=== PATIENT | male | born 1980 | race Caucasian/White ===

== ENCOUNTER 2020-04-22 22:25 | Outpatient (REF) | payer MEDICAID, SELFPAY ==
[2020-04-22 23:26] LABS: BUN 13 mg/dL (7-18); CREATININE 1.1 mg/dL (0.70-1.30); Calcium 10.1 mg/dL (8.5-10.1); Chloride 100 mmol/L (98-107); Glucose 117 mg/dL (74-106); Potassium 4.6 mmol/L (3.5-5.1); Sodium 139 mmol/L (136-145); TSH (W/Ref FT4) 2.85 uIU/mL (0.36-3.74); Vitamin B12 637 pg/mL (193-986)
[2020-04-23 04:43] LABS: Vitamin D 25 Total 18.8 ng/ml (30-100)
== END 2020-04-22 22:26 | disposition home or self-care (01) ==
LOC: NCHCN 22:25
PROVIDERS: Visit Provider Nurse Practitioner Community Health
DX: F41.8 Other specified anxiety disorders (principal); R63.5 Abnormal weight gain
CPT/HCPCS: 80048; 82306; 82607; 84443